=== PATIENT | female | born 2000 | race Two or more races ===

== ENCOUNTER 2023-04-06 03:47 | Emergency (ER) | payer MEDICAID, OTHER ==
[~2023-04-06] VITALS: Ht 167.6 cm; Wt 70.3 kg
[2023-04-06] MEDS ORDERED: HYDROCODONE/APAP 5/325MG TABLET PO ONE (04:00)
[2023-04-06] MEDS ORDERED: HYDROCODONE/APAP 5/325MG TABLET ONE (04:02)
[2023-04-06] MEDS ORDERED: KETOROLAC TROMETHAMINE INJ 30 MG/ML VIAL ONE (07:30)
[2023-04-06] MEDS ORDERED: KETOROLAC TROMETHAMINE INJ 30 MG/ML VIAL IM ONE (07:30)
[2023-04-06] MEDS ORDERED: CYCLOBENZAPRINE 10 MG TABLET ONE (07:30)
[2023-04-06] MEDS ORDERED: CYCLOBENZAPRINE 10 MG TABLET PO ONE (07:30)
[2023-04-06 07:57] LABS: BASOPHILS % (AUTO) 0.1 % (0.0-2.0); HEMATOCRIT 38 % (33-45); HEMOGLOBIN 12.1 g/dL (11.5-14.8); LYMPHOCYTES # (AUTO) 0.5 K/uL (0.8-4.8); LYMPHOCYTES % (AUTO) 2.8 % (20.0-44.0); MEAN CORPUSCULAR HEMOGLOBIN 26 PG (26.0-33.0); MEAN CORPUSCULAR HGB CONC 32 g/dl (31.0-36.0); MEAN CORPUSCULAR VOLUME 81 fL (82-100); MONOCYTES # (AUTO) 0.5 K/uL (0.1-1.30); MONOCYTES % (AUTO) 2.7 % (2.0-12.0); NEUTROPHILS # (AUTO) 18.1 K/uL (1.8-8.9); NEUTROPHILS % (AUTO) 94.4 % (43.0-81.0); PLATELET COUNT (AUTO) 301 K/uL (150-450); RED BLOOD CELL COUNT(AUTO) 4.66 MIL/uL (4.0-5.2); RED CELL DISTRIBUTION WIDTH 15.2 % (11.5-15.0); WHITE BLOOD COUNT (AUTO) 19.2 K/uL (4.3-11.0)
[2023-04-06 08:21] LABS: CALCIUM, SERUM 8.9 mg/dL (8.5-10.1); CREATININE 0.6 mg/dL (0.6-1.3); POTASSIUM 4.1 mmol/L (3.5-5.1)
[2023-04-06 13:10] VITALS: BP 110/68; TEMP 98.7; O2SAT 100
== END 2023-04-06 13:11 | disposition short-term general hospital (02) ==
LOC: ER 03:49
DX: M54.2 Cervicalgia (principal); V89.2XXA Person injured in unspecified motor-vehicle accident, traffic, initial encounter; Y93.89 Activity, other specified; Y92.89 Other specified places as the place of occurrence of the external cause; Y99.8 Other external cause status
CPT/HCPCS: 99285; 72125; 70498; 70496; 85025; 80048; 36415; 84702; 96372; J1885; J7050; Q9967